=== PATIENT | female | born 1955 | race Caucasian/White ===

== ENCOUNTER 2018-03-25 15:37 | Emergency (ER) | payer OTHER | END 2018-03-25 17:28 | disposition home or self-care (01) | LOC: FTE 15:37 | DX: M54.12 Radiculopathy, cervical region (principal); M62.838 Other muscle spasm; F17.210 Nicotine dependence, cigarettes, uncomplicated; I10 Essential (primary) hypertension | CPT/HCPCS: 99283; Z7502 ==

== ENCOUNTER 2018-07-23 23:46 | Inpatient (IN) | payer OTHER ==
[2018-07-24 04:06] LABS: ADD MAN DIFF? NO
[2018-07-24 04:08] LABS: BASOPHIL # 0.1 10^3/ul (0.0-0.1); BASOPHILS % 0.5 % (0.0-2.0); EOSINOPHILS % 0.3 % (0.0-7.0); HEMATOCRIT 42.9 % (37.0-47.0); HEMOGLOBIN 14.3 g/dl (12.0-16.0); LYMPHOCYTES # 1.8 10^3/ul (0.8-2.9); LYMPHOCYTES % 17.6 % (15.0-51.0); MEAN CORPUSCULAR HEMOGLOBIN 28.7 pg (29.0-33.0); MEAN CORPUSCULAR HGB CONC 33.3 g/dl (32.0-37.0); MEAN PLATELET VOLUME 10.9 fl (7.4-10.4); MONOCYTE # 0.8 10^3/ul (0.3-0.9); NEUTROPHIL # 7.5 10^3/ul (1.6-7.5); NEUTROPHILS % 73.1 % (39.0-77.0); PLATELET COUNT 196 10^3/UL (140-415); RED BLOOD COUNT 4.99 10^6/ul (4.20-5.40); RED CELL DISTRIBUTION WIDTH 13.8 % (11.5-14.5)
[2018-07-24 04:08] LABS: WHITE BLOOD COUNT 10.2 10^3/ul (4.8-10.8)
[2018-07-24] MEDS: FAMOTIDINE 20 MG INJ IV ×2 (04:15→12:30)
[2018-07-24] MEDS: ONDANSETRON 4 MG INJ IV (04:15)
[2018-07-24] MEDS: SOD CHLORIDE 0.9% 500 ML IV (04:16)
[2018-07-24 04:22] LABS: ADD UMIC YES; UR ASCORBIC ACID 40 mg/dL (NEGATIVE); UR BACTERIA FEW /HPF (NONE SEEN); UR BILIRUBIN (Dip) NEGATIVE (NEGATIVE); UR BLOOD (Dip) NEGATIVE (NEGATIVE); UR CLARITY SLIGHTLY CLOUDY (CLEAR); UR COLOR AMBER (YELLOW); UR GLUCOSE (Dip) NEGATIVE (NEGATIVE); UR KETONES (Dip) 2+ mg/dL (NEGATIVE); UR LEUKOCYTE ESTERASE (Dip) NEGATIVE Leu/ul (NEGATIVE); UR MUCUS MANY /HPF (NONE SEEN); UR NITRITE (Dip) NEGATIVE (NEGATIVE); UR RBC 2 /HPF (0-5); UR SPECIFIC GRAVITY (Dip) 1.029 (1.003-1.030); UR SQUAMOUS EPITHELIAL CELL FEW /HPF (FEW); UR TOTAL PROTEIN (Dip) 1+ mg/dl (NEGATIVE); UR UROBILINOGEN (Dip) 2+ mg/dL (NEGATIVE); UR WBC 6 /HPF (0-5)
[2018-07-24 04:55] LABS: ALANINE AMINOTRANSFERASE 43 IU/L (13-69); ALBUMIN 4.3 g/dl (3.3-4.9); ALBUMIN/GLOBULIN RATIO 1.13; ALKALINE PHOSPHATASE 184 IU/L (42-121); ANION GAP 14 (5-13); ASPARTATE AMINO TRANSFERASE 43 IU/L (15-46); BLOOD UREA NITROGEN 11 mg/dl (7-20); CALCIUM 9.7 mg/dl (8.4-10.2); CARBON DIOXIDE 28 mmol/L (21-31); CHLORIDE 95 mmol/L (97-110); CREATININE 0.44 mg/dl (0.44-1.00); Estimated GFR > 60 mL/min (>60); GLUCOSE 131 mg/dl (70-220); LIPASE 51 U/L (23-300); POTASSIUM 4.1 mmol/L (3.5-5.1); SODIUM 137 mmol/L (135-144); TOTAL PROTEIN 8.1 g/dl (6.1-8.1)
[2018-07-24 05:05] LABS: TROPONIN-I < 0.012 ng/ml (0.000-0.120)
[2018-07-24] MEDS ORDERED: SOD CHLORIDE 0.9% 1,000 ML IV (11:06)
[2018-07-24] MEDS ORDERED: hydrALAzine 20 MG INJ IV (11:30)
[2018-07-24] MEDS ORDERED: NITROGLYCERIN (SL) 0.4 MG TAB SL (11:30)
[2018-07-24] MEDS ORDERED: ALBUTEROL/IPRATROPIUM (NEB) 3 ML AMP HHN (11:30)
[2018-07-24] MEDS ORDERED: MAGNESIUM HYDROXIDE 30ML CUP PO (11:30)
[2018-07-24] MEDS ORDERED: HYDROCODONE/APAP (5/325) TAB PO (11:30)
[2018-07-24] MEDS ORDERED: DOCUSATE SODIUM 100 MG CAP PO (11:30)
[2018-07-24] MEDS ORDERED: NACL 0.9% 3 ML SYG IV (11:30)
[2018-07-24] MEDS ORDERED: LORAZEPAM 2 MG INJ IV (11:30)
[2018-07-24] MEDS ORDERED: morphine 2 MG INJ IV (11:30)
[2018-07-24 12:17] LABS: PROTIME 14.3 Sec (11.9-14.9); PT RATIO 1.1
[2018-07-24 12:18] LABS: PARTIAL THROMBOPLASTIN TIME 29.7 Sec (23.0-35.0)
[2018-07-24 12:23] LABS: FREE T4 (FREE THYROXINE) 0.83 ng/dl (0.78-2.44)
[2018-07-24] MEDS: SOD CHLORIDE 0.45% 1,000 ML IV (18:20)
[2018-07-24] MEDS: ATORVASTATIN 20 MG TAB PO (20:50)
[2018-07-25 05:35] LABS: ADD MAN DIFF? NO
[2018-07-25 05:39] LABS: BASOPHILS % 0.6 % (0.0-2.0); EOSINOPHILS # 0.2 10^3/ul (0.0-0.5); EOSINOPHILS % 2.1 % (0.0-7.0); HEMATOCRIT 35.4 % (37.0-47.0); HEMOGLOBIN 11.6 g/dl (12.0-16.0); LYMPHOCYTES # 2.5 10^3/ul (0.8-2.9); LYMPHOCYTES % 35.8 % (15.0-51.0); MEAN CORPUSCULAR HEMOGLOBIN 28.9 pg (29.0-33.0); MEAN CORPUSCULAR HGB CONC 32.8 g/dl (32.0-37.0); MEAN CORPUSCULAR VOLUME 88.1 fl (82.0-101.0); MONOCYTE # 0.7 10^3/ul (0.3-0.9); MONOCYTES % 10.6 % (0.0-11.0); NEUTROPHIL # 3.5 10^3/ul (1.6-7.5); NEUTROPHILS % 50.5 % (39.0-77.0); PLATELET COUNT 168 10^3/UL (140-415); RED BLOOD COUNT 4.02 10^6/ul (4.20-5.40); RED CELL DISTRIBUTION WIDTH 14.4 % (11.5-14.5)
[2018-07-25 06:07] LABS: ANION GAP 7 (5-13); BLOOD UREA NITROGEN 8 mg/dl (7-20); CALCIUM 8.6 mg/dl (8.4-10.2); CARBON DIOXIDE 30 mmol/L (21-31); CHLORIDE 101 mmol/L (97-110); CREATININE 0.47 mg/dl (0.44-1.00); Estimated GFR > 60 mL/min (>60); GLUCOSE 98 mg/dl (70-220); PHOSPHORUS 3.7 mg/dl (2.5-4.9); POTASSIUM 3.5 mmol/L (3.5-5.1); SODIUM 138 mmol/L (135-144)
[2018-07-25 06:11] LABS: CHOLESTEROL 132 mg/dl (100-200)
[2018-07-25 06:11] LABS: HDL CHOLESTEROL 26 mg/dl (35-98); LDL CHOLESTEROL,CALCULATED 83 mg/dl; TRIGLYCERIDES 114 mg/dl (0-149)
[2018-07-25 06:19] LABS: HEMOGLOBIN A1C 4.9 % (0-5.9)
[2018-07-25] MEDS: SOD CHLORIDE 0.45% 1,000 ML IV ×2 (07:20→21:39)
[2018-07-25] MEDS: ONDANSETRON 4 MG INJ IV ×2 (09:10→21:41)
[2018-07-25] MEDS: FAMOTIDINE 20 MG INJ IV (09:10)
[2018-07-25] MEDS: BISACODYL (EC) 5 MG TAB PO (16:03)
[2018-07-25] MEDS: PEG/ELECTROLYTES 4L BTL PO (16:09)
[2018-07-25] MEDS: ATORVASTATIN 20 MG TAB PO (20:25)
[2018-07-26 05:42] LABS: ADD MAN DIFF? NO
[2018-07-26] MEDS: BISACODYL (EC) 5 MG TAB PO (05:42)
[2018-07-26] MEDS: PEG/ELECTROLYTES 4L BTL PO (05:43)
[2018-07-26 05:47] LABS: WHITE BLOOD COUNT 6.3 10^3/ul (4.8-10.8)
[2018-07-26 05:47] LABS: BASOPHILS % 0.5 % (0.0-2.0); EOSINOPHILS # 0.2 10^3/ul (0.0-0.5); EOSINOPHILS % 3.2 % (0.0-7.0); HEMATOCRIT 33.8 % (37.0-47.0); LYMPHOCYTES # 2.2 10^3/ul (0.8-2.9); LYMPHOCYTES % 34.7 % (15.0-51.0); MEAN CORPUSCULAR HGB CONC 32.5 g/dl (32.0-37.0); MEAN CORPUSCULAR VOLUME 89.2 fl (82.0-101.0); MEAN PLATELET VOLUME 10.6 fl (7.4-10.4); MONOCYTE # 0.8 10^3/ul (0.3-0.9); MONOCYTES % 12.2 % (0.0-11.0); NEUTROPHIL # 3.1 10^3/ul (1.6-7.5); NEUTROPHILS % 49.1 % (39.0-77.0); PLATELET COUNT 180 10^3/UL (140-415); RED BLOOD COUNT 3.79 10^6/ul (4.20-5.40); RED CELL DISTRIBUTION WIDTH 14.2 % (11.5-14.5)
[2018-07-26 06:10] LABS: ANION GAP 8 (5-13); BLOOD UREA NITROGEN 4 mg/dl (7-20); CALCIUM 8.3 mg/dl (8.4-10.2); CARBON DIOXIDE 28 mmol/L (21-31); CHLORIDE 101 mmol/L (97-110); CREATININE 0.45 mg/dl (0.44-1.00); Estimated GFR > 60 mL/min (>60); GLUCOSE 153 mg/dl (70-220); POTASSIUM 3.4 mmol/L (3.5-5.1); SODIUM 137 mmol/L (135-144)
[2018-07-26] MEDS: SOD CHLORIDE 0.45% 1,000 ML IV ×2 (09:09→20:43)
[2018-07-26] MEDS: FAMOTIDINE 20 MG INJ IV (11:31)
[2018-07-26] MEDS: POTASSIUM CHLORIDE 100 ML IVPB ×2 (12:30→13:29)
[2018-07-26] MEDS ORDERED: METOCLOPRAMIDE 10 MG INJ IV (15:30)
[2018-07-26] MEDS: PROPOFOL 60 ML (15:35)
[2018-07-26] MEDS: ATORVASTATIN 20 MG TAB PO (20:46)
[2018-07-27] MEDS: ACETAMINOPHEN 325 MG TAB PO (03:02)
[2018-07-27] MEDS: PANTOPRAZOLE (EC) 40 MG TAB PO (05:26)
[2018-07-27 05:55] LABS: ADD MAN DIFF? NO
[2018-07-27 05:58] LABS: WHITE BLOOD COUNT 4.1 10^3/ul (4.8-10.8)
[2018-07-27 05:58] LABS: EOSINOPHILS # 0.2 10^3/ul (0.0-0.5); EOSINOPHILS % 3.6 % (0.0-7.0); HEMATOCRIT 34.9 % (37.0-47.0); HEMOGLOBIN 11.2 g/dl (12.0-16.0); LYMPHOCYTES # 1.7 10^3/ul (0.8-2.9); LYMPHOCYTES % 41.5 % (15.0-51.0); MEAN CORPUSCULAR HEMOGLOBIN 29.3 pg (29.0-33.0); MEAN CORPUSCULAR HGB CONC 32.1 g/dl (32.0-37.0); MEAN CORPUSCULAR VOLUME 91.4 fl (82.0-101.0); MEAN PLATELET VOLUME 10.7 fl (7.4-10.4); MONOCYTE # 0.6 10^3/ul (0.3-0.9); MONOCYTES % 13.8 % (0.0-11.0); NEUTROPHIL # 1.7 10^3/ul (1.6-7.5); NEUTROPHILS % 39.9 % (39.0-77.0); PLATELET COUNT 204 10^3/UL (140-415); RED BLOOD COUNT 3.82 10^6/ul (4.20-5.40); RED CELL DISTRIBUTION WIDTH 14.6 % (11.5-14.5)
[2018-07-27 06:42] LABS: ANION GAP 7 (5-13); BLOOD UREA NITROGEN 6 mg/dl (7-20); CALCIUM 8.3 mg/dl (8.4-10.2); CARBON DIOXIDE 27 mmol/L (21-31); CHLORIDE 107 mmol/L (97-110); CREATININE 0.45 mg/dl (0.44-1.00); Estimated GFR > 60 mL/min (>60); GLUCOSE 108 mg/dl (70-220); POTASSIUM 4.3 mmol/L (3.5-5.1); SODIUM 141 mmol/L (135-144)
[2018-07-27] MEDS ORDERED: GABAPENTIN 100 MG CAP PO (12:00)
[2018-07-27] MEDS: POLYETHYLENE GLYCOL 17 GM PACKET PO (12:30)
[2018-07-27] MEDS: GABAPENTIN 100 MG CAP PO (14:15)
== END 2018-07-27 16:00 | disposition home or self-care (01) | DRG 378 ==
LOC: E/R 23:46 → 6WM 07-24 05:33
PROC: 0DB68ZX Excision of Stomach, Via Natural or Artificial Opening Endoscopic, Diagnostic (ICD-10-PCS; principal; 2018-07-26 14:00)
PROC: 0DBN8ZZ Excision of Sigmoid Colon, Via Natural or Artificial Opening Endoscopic (ICD-10-PCS; 2018-07-26 14:00)
DX: K29.01 Acute gastritis with bleeding (principal); Z68.41 Body mass index [BMI] 40.0-44.9, adult; D12.5 Benign neoplasm of sigmoid colon; E66.9 Obesity, unspecified; E78.00 Pure hypercholesterolemia, unspecified; I10 Essential (primary) hypertension; K20.9 Esophagitis, unspecified; K92.1 Melena; K64.8 Other hemorrhoids; K64.4 Residual hemorrhoidal skin tags; K59.00 Constipation, unspecified; M25.512 Pain in left shoulder; R11.2 Nausea with vomiting, unspecified; R55 Syncope and collapse; R10.9 Unspecified abdominal pain; Z71.3 Dietary counseling and surveillance; Z87.891 Personal history of nicotine dependence
CPT/HCPCS: 36415; 70450; 71045; 73030; 74176; 80048; 80053; 80061; 81001; 81025; 82962; 83036; 83690; 83735; 84100; 84439; 84443; 84484; 85025; 85610; 85730; 87086; 88305; 88312; 92610; 93005; 93306; 93880; 96361; 96374; 96375; 97161; 97166; 99285-25

== ENCOUNTER 2018-08-13 15:37 | Emergency (ER) | payer OTHER ==
[2018-08-13] MEDS: KETOROLAC 15 MG INJ IV (17:03)
== END 2018-08-13 18:28 | disposition home or self-care (01) ==
LOC: FTE 18:28
DX: S99.911A Unspecified injury of right ankle, initial encounter (principal); X58.XXXA Exposure to other specified factors, initial encounter; Y92.9 Unspecified place or not applicable
CPT/HCPCS: 73610; 73610-RT; 96374; 99284-25

== ENCOUNTER 2018-08-28 15:31 | Emergency (ER) | payer OTHER ==
[2018-08-28 17:41] LABS: URIC ACID 7.5 mg/dl (3.1-7.9)
[2018-08-28 18:34] LABS: ERYTHROCYTE SEDIMENTATION RATE 105 mm/Hr (0-30)
== END 2018-08-28 19:32 | disposition home or self-care (01) ==
LOC: FTE 15:31
DX: M25.572 Pain in left ankle and joints of left foot (principal); I10 Essential (primary) hypertension
CPT/HCPCS: 84560; 85651; 86140; 93971; 99284-25